=== PATIENT | male | born 1955 | race Caucasian/White ===

== ENCOUNTER 2019-03-08 17:12 | Emergency (ER) | payer SELFPAY ==
[~2019-03-08] VITALS: Ht 175.3 cm; Wt 82.0 kg
[2019-03-08] MEDS ORDERED: TETANUS, DIPHTHERIA, PERTUSSIS VAC/PF 0.5ML (>7YR OLD) IM ONE (20:15)
[2019-03-08 22:08] VITALS: BP 138/88
== END 2019-03-08 22:10 | disposition home or self-care (01) ==
LOC: ER 17:12
DX: S51.851A Open bite of right forearm, initial encounter (principal); W54.0XXA Bitten by dog, initial encounter; Y93.89 Activity, other specified; Y92.89 Other specified places as the place of occurrence of the external cause
CPT/HCPCS: 73090; 90471; 90715; 99283; Z7610